=== PATIENT | male | born 1960 | race Caucasian/White ===

== ENCOUNTER → 2020-12-28 11:09 | Outpatient (CLI) | payer OTHER, SELFPAY | PROVIDERS: Visit Provider Ophthalmology | DX: Z01.812 Encounter for preprocedural laboratory examination (principal); Z20.822 Contact with and (suspected) exposure to COVID-19 | CPT/HCPCS: U0003 ==

== ENCOUNTER 2020-12-31 08:56 | Day surgery (SDC) | payer OTHER, SELFPAY ==
[2020-12-26 14:37] VITALS: BMI 34.2
[2020-12-31] VITALS (7 sets, daily range): BP systolic 119–145; BP diastolic 58–71; PULSE 51–97; RESP 18; TEMP 36.1–36.5; O2SAT 96–99
== END 2020-12-31 11:37 | disposition home or self-care (01) ==
LOC: OR 09:02
PROVIDERS: PCP Family Medicine; Visit Provider Ophthalmology
PROC: (CPT 66982; principal; 2020-12-31 11:30)
DX: H25.811 Combined forms of age-related cataract, right eye (principal); Z96.1 Presence of intraocular lens; H57.03 Miosis; I10 Essential (primary) hypertension; K21.9 Gastro-esophageal reflux disease without esophagitis; M19.90 Unspecified osteoarthritis, unspecified site; F41.9 Anxiety disorder, unspecified; Z72.0 Tobacco use
CPT/HCPCS: 66982; V2632